=== PATIENT | female | born 2005 | race African-American/Black ===

== ENCOUNTER 2025-02-09 15:50 | Emergency (ER) | payer BC, SELFPAY ==
[2025-02-09] MEDS ORDERED: Dexamethasone 10 MG/ML VIAL ONE (18:40)
== END 2025-02-09 19:49 | disposition home or self-care (01) ==
LOC: ERS 15:50
DX: J06.9 Acute upper respiratory infection, unspecified (principal)
CPT/HCPCS: 71045; 87081; 87428; 87430; 94640; J1100